=== PATIENT | male | born 1985 | race American Indian/Alaskan Native ===

== ENCOUNTER 2020-07-27 21:11 | Emergency (ER) | payer SELFPAY | END 2020-07-27 22:30 | disposition left against medical advice (07) | LOC: ED 21:11 | DX: M79.672 Pain in left foot (principal); Z53.21 Procedure and treatment not carried out due to patient leaving prior to being seen by health care provider ==

== ENCOUNTER 2021-01-02 08:39 | Emergency (ER) | payer SELFPAY ==
[2021-01-02 08:47] VITALS: BP 148/85
--- NOTE | 2021-01-02 09:18 | XRay Report ---
RIGHT HAND 3 VIEWS INDICATION / CLINICAL INFORMATION: Right hand pain and swelling. COMPARISON: None available. FINDINGS: BONES / JOINT(S): There is an acute, mildly comminuted, oblique fracture of the distal metadiaphysis of the fifth metacarpal. There is mild ventral and lateral angulation of the distal fracture fragment . No subluxation. No significant arthritis. SOFT TISSUES: No significant abnormality. ADDITIONAL FINDINGS: None. IMPRESSION: Acute fracture of the distal right fifth metacarpal. Signer Name: Scooter Leon MD Signed: 01/02/2021 9:13 AM Workstation Name: [id number]
--- NOTE | 2021-01-02 10:54 | Emergency Department Report ---
ED General Adult HPI - General Chief complaint: Extremity Injury, Upper Stated complaint: RT HAND INJURY Time Seen by Provider: 01/02/21 10:43 Source: patient Mode of arrival: Ambulatory Limitations: No Limitations - History of Present Illness Initial comments: 35-year-old [id number] male patient presents emergency department with complaints of traumatic right hand pain starting 4 days ago. Patient states he was swimming in a pool on vacation when he dived into the shallow end and used his right hand to stop himself from hitting his head on the bottom of the pool. He did [place] seek treatment until today [place] No history of prior injuries to the right hand. Denies headache, neck pain, shoulder pain, elbow pain, arm pain, wrist pain, paresthesias, skin color changes. Denies all other complaints at this time. - Related Data Previous Rx's Medication Instructions Recorded Last Taken Type HYDROcodone/APAP 5-325 [Lavonia 1 each PO Q6H PRN #5 tablet 01/02/21 Unknown Rx 5/325] Naproxen 500 mg PO BID #20 tablet 01/02/21 Unknown Rx Allergies Allergy/AdvReac Type Severity Reaction Status Date / Time No Known Allergies Allergy Unverified 01/02/21 08:43 ED Review of Systems ROS: Stated complaint: RT HAND INJURY Other details as noted in HPI Other: CARDIOVASCULAR: Negative for chest pain. PULMONARY: Negative for dyspnea. GASTROINTESTINAL: Negative for abdominal pain. MUSCULOSKELETAL: Positive for right hand pain. NEUROLOGICAL: Negative for headache. INTEGUMENTARY: Negative for ecchymosis. ED Past Medical Hx - Past Medical History Previous Medical History?: No - Surgical History Past Surgical History?: No - Social History Smoking Status: Never Smoker Substance Use Type: Alcohol - Medications Home Medications: Home Medications Medication Instructions Recorded Confirmed Last Taken Type HYDROcodone/APAP 5-325 [Lavonia 1 each PO Q6H PRN #5 tablet 01/02/21 Unknown Rx 5/325] Naproxen 500 mg PO BID #20 tablet 01/02/21 Unknown Rx ED Physical Exam - General Limitations: No Limitations - Other Other exam information: General: Awake, appropriately interactive, no acute distress. Neck: Supple. Full range of motion intact. Cardiovascular: Normal peripheral perfusion. Pulmonary: No respiratory distress. Patient is speaking normally without use of accessory muscles. Skin: No apparent rashes or lesions. Neurological: No facial asymmetry. Speech is clear. Follows commands. Patient is alert and oriented. Musculoskeletal: Tenderness to palpation along the distribution of the right fifth metacarpal with diffuse soft tissue swelling throughout the ulnar aspect of the right hand. No wrist tenderness. No anatomical snuffbox tenderness. Active and passive range of motion of the right fifth digit intact in all directions with and without resistance. Diminished sensation to light palpation along the distal aspect of the right fifth digit. Brisk capillary refill. Psych: Cooperative. Appropriate mood and affect. ED Course Vital Signs 01/02/21 08:43 Temperature 98 F Pulse Rate 85 Respiratory 20 Rate Blood Pressure 148/85 ED Medical Decision Making - Radiology Data [facility] [address] [place] [address] XRay Report Signed Patient: XIANG VALENCIA MR#: [id number] : 1985 Acct:[id number] Age/Sex: 35 / M ADM Date: 01/02/21 Loc: ED Attending Dr: Ordering Physician: CASEY CHAHAL MD Date of Service: 01/02/21 Procedure(s): XR hand 3+V RT Accession Number(s): [id number] cc: ED MD FELA Fluoro Time In Minutes: RIGHT HAND 3 VIEWS INDICATION / CLINICAL INFORMATION: Right hand pain and swelling. COMPARISON: None available. FINDINGS: BONES / JOINT(S): There is an acute, mildly comminuted, oblique fracture of the distal metadiaphysis of the fifth metacarpal. There is mild ventral and lateral angulation of the distal fracture fragment. No subluxation. No significant arthritis. SOFT TISSUES: No significant abnormality. ADDITIONAL FINDINGS: None. IMPRESSION: Acute fracture of the distal right fifth metacarpal. Signer Name: June Leon MD Signed: 01/02/2021 9:13 AM Workstation Name: [id number] Transcribed By: RT Dictated By: June Leon MD Electronically Authenticated By: June Leon MD Signed Date/Time: 01/02/21912 DD/ 1 TD/TT: - Medical Decision Making Differential diagnosis including but not limited to: sprain, strain, fracture, contusion, dislocation On reevaluation, patient remained stable. Repeat neurovascular exam remains intact. X-rays show mildly displaced distal right metacarpal fracture. No clinical indication for emergent reduction at this time. Patient will be placed in an ulnar gutter splint, prescribed appropriate analgesics, and referred to orthopedics for close outpatient follow-up. Patient expressed understanding and is agreeable to plan of care. RICE precautions discussed. Strict return precautions provided. Repeat exam is unremarkable and benign. History, exam, diagnostic testing, and current condition do not suggest worrisome pathology to warrant further testing, continued ED treatment, admission, or surgical evaluation at this point. Given the low probability of a significant medical illness, it would be more likely to result in harm than benefit to perform further testing at this stage. Discussed findings, presumptive diagnosis, need for follow-up and specific signs/symptoms that should prompt immediate return to the emergency department. Instructions were explained in detail to the patient in addition to giving written discharge information. Patient expressed understanding and was given the opportunity to ask questions, all of which were satisfactorily answered prior to discharge home. Critical care attestation.: If time is entered above; I have spent that time in minutes in the direct care of this critically ill patient, excluding procedure time. ED Disposition Clinical Impression: Fracture, metacarpal Qualifiers: Encounter type: initial encounter Metacarpal bone: fifth Fracture type: closed Metacarpal location: shaft Fracture alignment: displaced Laterality: right Qualified Code(s): S62.326A - Displaced fracture of shaft of fifth metacarpal bone, right hand, initial encounter for closed fracture Disposition: DC- TO HOME OR SELFCARE Is pt being admited?: No Does the pt Need Aspirin: No Condition: Stable Instructions: Boxer's Fracture Additional Instructions: Take Tylenol every 4 hours as needed for pain. Take Naprosyn twice daily food as needed for pain. If these medications are not sufficient in controlling your pain, take Lavonia with food as directed for pain. Do not consume alcohol with taking this medication. Do not drive or operate machinery while taking this medication. Wear splint as directed. Keep right hand elevated as often as possible to reduce swelling. Follow-up with Dr. Farias, orthopedics, this week. Call tomorrow to schedule an appointment. See referral information below. Return to the emergency department immediately for new or worsening symptoms. Specifically, return to the emergency department immediately for increased pain, worsening swelling, numbness, tingling, skin color changes, or any other concerns. Prescriptions: Naproxen 500 mg PO BID #20 tablet HYDROcodone/APAP 5-325 [Lavonia 5/325] 1 each PO Q6H PRN #5 tablet PRN Reason: Pain Referrals: JUNE FARIAS MD [Staff Physician] - 3-5 Days Forms: Work/School Release Form(ED) Time of Disposition: 10:54
== END 2021-01-02 12:00 | disposition home or self-care (01) ==
LOC: ED 08:39
DX: S62.396A Other fracture of fifth metacarpal bone, right hand, initial encounter for closed fracture (principal); Z72.89 Other problems related to lifestyle; W16.522A Jumping or diving into swimming pool striking bottom causing other injury, initial encounter; Y93.11 Activity, swimming; Y92.89 Other specified places as the place of occurrence of the external cause; Y99.8 Other external cause status
CPT/HCPCS: 99283